=== PATIENT | male | born 1950 | race African-American/Black ===

== ENCOUNTER 2019-12-02 12:58 | Emergency (ER) | payer MEDICARE ==
[~2019-12-02] VITALS: Ht 182.9 cm; Wt 102.0 kg
[2019-12-02] MEDS ORDERED: SODIUM CHLORIDE 0.9% 1,000 ML IV ONE (14:42)
[2019-12-02 14:53] LABS: BASOPHILS % 0.8 % (0.0-2.0); EOSINOPHILS % 3.1 % (0.0-5.0); HEMOGLOBIN. 13.8 g/dL (14.0-18.0); LYMPHOCYTES % 21.6 % (20.0-50.0); MEAN CORPUSCULAR HEMOGLOBIN 29.9 pg (28.0-32.0); MEAN CORPUSCULAR VOLUME 90.6 fL (80.0-94.0); MEAN PLATELET VOLUME 9.3 fl (7.4-10.4); MONOCYTES % 6.2 % (2.0-8.0); NEUTROPHILS % 68.3 % (40.0-76.0); PLATELET 216 x1000/uL (130-400); RED BLOOD CELL COUNT 4.63 mill/uL (4.7-6.1); RED CELL DISTRIBUTION WIDTH 15.2 % (11.6-14.6)
[2019-12-02 15:01] LABS: CHLORIDE 111 mEq/L (98-107)
[2019-12-02 15:03] LABS: INR 0.9; PROTHROMBIN TIME 9.8 sec (9.6-11.0)
[2019-12-02 15:05] LABS: ETHANOL BLOOD 155 mg/dL
[2019-12-02 15:20] LABS: CREATINE KINASE 1180 IU/L (39-308)
[2019-12-02 17:24] LABS: BG BASE EXCESS -3.5 mmol/L (-2.0-2.0); BG CARBOXYHEMOGLOBIN 0.8 % (0.5-1.5); BG DEOXYHEMOGLOBIN 4.8 % (0.0-5.0); BG FRACTION INSPIRED OXYGEN 21; BG HCO3 ACT 21.3 mmol/L (22.0-26.0); BG METHEMOGLOBIN 0.2 % (0.0-1.5); BG OXYGEN SATURATION 95.2 % (92.0-98.5); BG OXYHEMOGLOBIN 94.2 % (94.0-97.0); BG PCO2 38.1 mmHg (35.0-45.0); BG PH 7.366 (7.350-7.450); BG PO2 82.4 mmHg (75.0-100.0); BG SAMPLE SITE RIGHT RADIAL; BG TOTAL HEMOGLOBIN 16.2 g/dL (12.0-18.0); BG VENT MODE ROOM AIR
[2019-12-02 20:00] VITALS: BP 164/84
== END 2019-12-02 21:37 | disposition home or self-care (01) ==
LOC: ER 13:18 → EDBD 13:18 → ER 21:37
DX: R41.82 Altered mental status, unspecified (principal)
CPT/HCPCS: 36415; 36600; 70450; 71045; 73502; 80053; 80307; 80320; 80329; 82140; 82375; 82550; 82805; 82962; 83605; 83690; 84484; 85025; 85610; 86850; 86900; 86901; 93005; 96360; 96361; 99285; J7030; G0480